=== PATIENT | male | born 1950 | race Caucasian/White ===

== ENCOUNTER 2022-08-19 12:07 | Emergency (ER) | payer OTHER ==
--- OUTSIDE RECORDS SUMMARY | 2022-08-19 12:13 | XMS REPORT | Continuity of Care Document ---
:1950 Author Organization [facility] t Address [address] [place] [address] [address]. [address] [place] [address] Care Team Providers Name Role Phone Asked, No Pcp Primary Care Physician Unavailable ASHELY HINDS Attending Clinician Unavailable ASHELY HINDS Admitting Clinician Unavailable Payers Payer Name Policy Type Policy Number Effective Date Expiration Date S bea [facility] [id number] 2021 00:00:00 Problems Condition Condition Condition Status Onset Resolution Last Treating Co mments Source Name Details Category Date Date Treatment Clinician Date No known No known Disease Metho di active active st problems problems Hospit a l Allergies, Adverse Reactions, Alerts This patient has no known allergies or adverse reactions. Social History Social Habit Start Date Stop Date Quantity Comments Source History of Smokes tobacco [facility] tobacco use daily Hospital Tobacco use and 2017-11-02 2017-11-02 Smokeless tobacco [facility] exposure 00:00:00 00:00:00 non-user Hospital Alcohol intake 2017-11-02 2017-11-02 Current [facility] 00:00:00 00:00:00 non-drinker of Hospital alcohol (finding) Sex Ass[birth year] [facility] 00:00:00 00:00:00 Hospital Smoking Status Start Date Stop Date Source Smokes tobacco daily 2017-11-02 00:00:[address] [facility] Medications Ordered Filled Start Stop Current Ordering Indication Dosage Frequency Signature Comments Components Source Medication Medication Date Date Medication? Clinician (SIG) Name Name No known No No known Metho di medications 1-[address] 18:15: [facility] Procedures This patient has no known procedures. Plan of Care Planned Activity Planned Date Details Comments Source Future Scheduled 2022-08-14 SHINGLES VACCINES ([address] [facility] Test 23:00:04 of 2) [code = SHINGLES VACCINES (1 of 2)] Future Scheduled 2022-08-14 65+ P[facility]UMOCOCCAL [facility] Test 23:00:04 VACCINE (1 - PCV) [code = 65+ PNEUMOCOCCAL VACCINE (1 - PCV)] Future Scheduled 2022-08-14 INFLUENZA VACCINE [email or web address] Test 23:00:04 [code = INFLUENZA VACCINE] Future Scheduled 2022-08-14 HEPATITIS B VACCINES Met [facility] Test 23:00:04 (1 of 3 - 3-dose series) [code = HEPATITIS B VACCINES (1 of 3 - 3-dose series)] Future Scheduled 2022-08-14 COVID-19 VACCINE (#1) [facility] Test 23:00:04 [code = COVID-19 VACCINE (#1)] Future Scheduled 2022-08-[address] [facility] Test 23:00:04 [code = COLONOSCOPY SCREENING] Encounters Start End Encounter Admission Attending Care Care Encounter Source Date/Time Date/Time Type Type Clinicians Facility Department ID 2022-05-13 Outpatient [facility] [id number] [place] 11:26:21 [id number] Health 2021-10-30 2021-10-31 Outpatient [facility] CAR 2018 [facility] 10:55:00 14:01:00 ASHELY Results This patient has no known results.
[2022-08-19] MEDS ORDERED: NA CHLORIDE 0.9% 1,000 ML ONE (13:02)
--- NOTE | 2022-08-19 13:18 | RAD REPORT ---
EXAM DESCRIPTION: RAD - Chest Single View - 08/19/2022 1:08 pm CLINICAL HISTORY: CHEST PAIN COMPARISON: CHEST SINGLE VIEW dated 07/22/2009; CHEST SINGLE VIEW dated 04/19/2008 FINDINGS: Lines: None. Lungs: No evidence of edema or pneumonia. Pleural: No significant pleural effusions or pneumothorax. Cardiac: Cardiomegaly Mediastinum: Within normal limits. Bones: No acute fractures. Remote rib fractures. Other: None IMPRESSION: No acute cardiopulmonary disease.
[2022-08-19 13:38] LABS: Protime INR 1.14
[2022-08-19 13:48] LABS: Absolute Lymphocytes (CBC) 1.3 K/uL (0.7-4.9); Hematocrit 40.5 % (39.6-49.0); Lymphocytes % 23.1 % (15.3-44.8); MCV 94.4 fL (80-100); RBC Red Blood Cell Count 4.29 M/uL (4.33-5.43)
[2022-08-19 13:55] LABS: Albumin 3.2 g/dL (3.4-5.0); Bilirubin Direct 0.2 mg/dL (0-0.2); Bilirubin Total 0.7 mg/dL (0.2-1.0); Magnesium 1.9 mg/dL (1.8-2.4); Potassium 3.4 mmol/L (3.5-5.1); Protein, Total 7.1 g/dL (6.4-8.2); Troponin High Sensitivity 32.4 pg/mL (<58.9)
[2022-08-19 14:00] LABS: SARS-COV-2 RT PCR NEGATIVE (NEGATIVE)
--- NOTE | 2022-08-19 14:47 | RAD REPORT ---
EXAM DESCRIPTION: CTAngio Aorta For Dissection - 08/19/2022 2:30 pm CLINICAL HISTORY: abdominal pain COMPARISON: Chest Single View dated 08/19/2022 TECHNIQUE: CTA of the chest, abdomen, and pelvis was performed without IV contrast. MIPs were create d. All CT scans are performed using dose optimization technique as appropriate and may include automated exposure control or mA/KV adjustment according to patient size. FINDINGS: Thorax: Chest Wall: No abnormal mass Lungs: Very mild interlobular septal thickening. Pleura: No effusions or pneumothorax. Lizzeth/Mediastinum: No lymphadenopathy. Aorta/Pulmonary Arteries: Unremarkable Heart: Cardiomegaly. Multi-vessel coronary artery disease. Abdomen/Pelvis: Liver: No acute abnormality or suspicious lesions. Biliary: No biliary ductal dilatation. Stomach: No significant focal abnormality. Duodenum: No significant focal abnormality. Pancreas: No significant abnormality. Spleen: No significant abnormality. Adrenal: Right adrenal thickening. Left adrenal calcifications. Kidney/ureter: No hydronephrosis. No renal calculi. Intermediate attenuation right renal lesions that are nonspecific. Retroperitoneum: No retroperitoneal adenopathy. Vascular: No aneurysm. Bowel: Mild diffuse colonic wall thickening.. Peritoneum: No ascites or free air. Bladder: Grossly unremarkable. Reproductive: No adnexal masses. Bones: Remote right-sided rib fractures. No acute fractures. Multilevel degenerative changes are pres ent in the spine. Other: n/a IMPRESSION: 1. No aortic aneurysm or aortic dissection identified. Mild edema suspected. 2. Mild colonic wall thickening versus underdistention. Findings could represent a colitis.
[2022-08-19 14:48] LABS: Urine Blood Negative (Negative); Urine Glucose Negative (Negative); Urine Protein Negative (Negative); Urine pH 5.5 (5.0-7.0)
[2022-08-19 15:08] LABS: Barbiturates NEGATIVE (NEGATIVE); Benzodiazepines POSITIVE (NEGATIVE); Cocaine NEGATIVE (NEGATIVE); METHAMPHETAM POSITIVE (NEGATIVE); Methadone NEGATIVE (NEGATIVE); Opiates NEGATIVE (NEGATIVE); Phencyclidine NEGATIVE (NEGATIVE); THC Cannibis POSITIVE (NEGATIVE)
--- NOTE | 2022-08-19 15:22 | ER ---
Nurse's Notes [facility] Name: Elfego Avelar Age: 71 yrs Sex: Male : 1950 Arrival Date: 08/19/2022 Time: 12:12 Bed 14 Private MD: Diagnosis: Infectious gastroenteritis and colitis, unspecified Presentation: 08/19 12:24 Chief complaint: Patient states: diarrhea x7 days and vomiting x3 days, very weak. 5 Coronavirus screen: Vaccine status: Patient reports being unvaccinated. Client denies travel out of the [place] in the last 14 days. Ebola Screen: Patient negative for fever greater than or equal to 101.5 degrees Fahrenheit, and additional compatible Ebola Virus Disease symptoms Patient denies exposure to infectious person. Patient denies travel to an Ebola-affected area in the 21 days before illness onset. Initial Sepsis Screen: Does the patient meet any 2 criteria? No. Patient's initial sepsis screen is negative. Does the patient have a suspected source of infection? No. Patient's initial sepsis screen is negative. Risk Assessment: Do you want to hurt yourself or someone else? Patient reports no desire to harm self or others. 12:24 Method Of Arrival: Ambulatory [facility] 12:24 Acuity: JOHN 3 jh5 Triage Assessment: 12:26 General: Appears in no apparent distress. uncomfortable, slender, Behavior is calm, jh5 cooperative, appropriate for age. GI: Reports lower abdominal pain, diarrhea, nausea, vomiting. Historical: - Allergies: 12:26 No Known Allergies; [facility] - Immunization history:: Adult Immunizations up to date. - Social history:: Smoking status: Patient denies any tobacco usage or history of. Screenin:00 Abuse screen: Denies threats or abuse. Denies injuries from another. Nutritional ko1 screening: No deficits noted. Tuberculosis screening: No symptoms or risk factors identified. Fall Risk None identified. Assessment: 13:00 General: Appears in no apparent distress. uncomfortable, Behavior is calm, cooperative, ko1 appropriate for age. GI: Abdomen is flat, non-distended, Reports nausea, vomiting. : No deficits noted. Vital Signs: 12:24 BP 134 / 99; Pulse 105; Resp 20; Temp 97.4; Pulse Ox 100% ; Weight 72.57 kg; Height 6 jh5 ft. 1 in. (185.42 cm); 13:00 BP 138 / 94; Pulse 95; Pulse Ox 99% on R/A; ko1 16:05 BP 132 / 86; Pulse 90; Resp 20; Pulse Ox 98% on R/A; ko1 12:24 Body Mass Index 21.11 (72.57 kg, 185.42 cm) [facility] ED Course: 12:12 Patient arrived in ED. rg4 12:20 Kasie Deng FNP-C is PHCP. snw 12:20 Dimitry Salcido MD is Attending Physician. snw 12:26 Triage completed. [facility] 12:26 Arm band placed on right wrist. [facility] 12:41 Earnestine Villanueva, CARLOS is Primary Nurse. ko1 13:00 Patient has correct armband on for positive identification. Bed in low position. Call ko1 light in reach. Side rails up X 1. 13:00 Basic Metabolic Panel Sent. ko1 13:00 CBC with Diff Sent. ko1 13:00 LFT's Sent. ko1 13:00 Magnesium Sent. ko1 13:00 NT PRO-BNP Sent. ko1 13:00 Troponin HS Sent. ko1 13:00 Inserted saline lock: 22 gauge in right forearm, using aseptic technique. Blood ko1 collected. 13:09 COVID-19/FLU A+B (Document "Date of Onset" if Symptomatic) Sent. ko1 13:10 XRAY Chest (1 view) In Process Unspecified. EDMS 13:25 Hepatitis Panel Sent. ko1 13:25 Basic Metabolic Panel Sent. ko1 13:25 CBC with Diff Sent. ko1 13:25 LFT's Sent. ko1 13:25 Magnesium Sent. ko1 13:25 NT PRO-BNP Sent. ko1 13:25 PT-INR Sent. ko1 13:25 Troponin HS Sent. ko1 14:31 CT Aorta for Dissection In Process Unspecified. EDMS 14:49 UDS Sent. ko1 14:49 Hepatitis Panel Sent. ko1 16:05 No provider procedures requiring assistance completed. IV discontinued, intact, ko1 bleeding controlled, No redness/swelling at site. Pressure dressing applied. Administered Medications: 13:05 Drug: NS 0.9% 1000 ml Route: IV; Rate: 75 ml/hr; Site: left wrist; ko1 15:48 Drug: Cipro (ciprofloxacin) 500 mg Route: PO; ko1 15:48 Drug: Zofran (Ondansetron) 4 mg Route: PO; ko1 Medication: 16:05 VIS not applicable for this client. ko1 Outcome: 15:22 Discharge ordered by . ying 16:05 Discharged to home ambulatory. ko1 16:05 Condition: stable 16:05 Discharge instructions given to patient, Instructed on discharge instructions, follow up and referral plans. medication usage, Demonstrated understanding of instructions, follow-up care, medications, Prescriptions given X 2. 16:13 Patient left the ED. ko1 Signatures: Dispatcher [employer] EDMS Kasie Deng, SUPERVISOR GEAR REPAIR-C SUPERVISOR GEAR REPAIR-Csnw Jesi Segura rg4 Rachel Mcleod, RN RN jh5 Earnestine Villanueva, CARLOS RN ko1
--- NOTE | 2022-08-19 15:22 | EDPHYS ---
Physician Documentation [facility] Name: Elfego Avelar Age: 71 yrs Sex: Male : 1950 Arrival Date: 08/19/2022 Time: 12:12 Bed 14 Private MD: ED Physician Dimitry Salcido HPI: 08/19 14:22 This 71 yrs old Male presents to ER via Ambulatory with complaints of Vomiting/Diarrhea.snw 14:22 The patient presents to the emergency department with nausea, vomiting, diarrhea. snw Onset: The symptoms/episode began/occurred suddenly, 6 day(s) ago, and became persistent. Possible causes: +heroin abuse. The symptoms are aggravated by nothing. Severity of symptoms: At their worst the symptoms were moderate. The patient has experienced similar episodes in the past. The patient has not recently seen a physician. 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 Historical: - Allergies: 12:26 No Known Allergies; jh5 - Immunization history:: Adult Immunizations up to date. - Social history:: Smoking status: Patient denies any tobacco usage or history of. ROS: 14:22 Constitutional: Negative for fever, chills, and weight loss, Eyes: Negative for injury, snw pain, redness, and discharge, ENT: Negative for injury, pain, and discharge, Neck: Negative for injury, pain, and swelling, Cardiovascular: Negative for chest pain, palpitations, and edema, Respiratory: Negative for shortness of breath, cough, wheezing, and pleuritic chest pain, Back: Negative for injury and pain, : Negative for injury, bleeding, discharge, and swelling, MS/Extremity: Negative for injury and deformity, Skin: Negative for injury, rash, and discoloration, Neuro: Negative for headache, weakness, numbness, tingling, and seizure. 14:22 Abdomen/GI: Positive for abdominal pain, nausea, vomiting, and diarrhea, of the right lower quadrant and left lower quadrant. Exam: 12:55 Respiratory: Lungs have equal breath sounds bilaterally, clear to auscultation and snw percussion. No rales, rhonchi or wheezes noted. No increased work of breathing, no retractions or nasal flaring. Abdomen/GI: Soft, tender, with normal bowel sounds. No distension or tympany. Back: No spinal tenderness. No costovertebral tenderness. Full range of motion. MS/ Extremity: Pulses equal, no cyanosis. Neurovascular intact. Full, normal range of motion. Neuro: Awake and alert, GCS 15, oriented to person, place, time, and situation. Cranial nerves II-XII grossly intact. Motor strength 5/5 in all extremities. Sensory grossly intact. Cerebellar exam normal. Normal gait. 14:18 Head/Face: Normocephalic, atraumatic. Eyes: Pupils equal round and reactive to light, snw extra-ocular motions intact. Lids and lashes normal. Conjunctiva and sclera are non-icteric and not injected. Cornea within normal limits. Periorbital areas with no swelling, redness, or edema. ENT: Nares patent. No nasal discharge, no septal abnormalities noted. Tympanic membranes are normal and external auditory canals are clear. Oropharynx with no redness, swelling, or masses, exudates, or evidence of obstruction, uvula midline. Mucous membranes moist. Neck: Trachea midline, no thyromegaly or masses palpated, and no cervical lymphadenopathy. Supple, full range of motion without nuchal rigidity, or vertebral point tenderness. No Meningismus. Chest/axilla: Normal chest wall appearance and motion. Nontender with no deformity. No lesions are appreciated. 14:18 Constitutional: The patient appears awake, frail, unkempt. 14:18 Cardiovascular: Rate: tachycardic, Rhythm: regular. Vital Signs: 12:24 BP 134 / 99; Pulse 105; Resp 20; Temp 97.4; Pulse Ox 100% ; Weight 72.57 kg; Height 6 jh5 ft. 1 in. (185.42 cm); 13:00 BP 138 / 94; Pulse 95; Pulse Ox 99% on R/A; ko1 16:05 BP 132 / 86; Pulse 90; Resp 20; Pulse Ox 98% on R/A; ko1 12:24 Body Mass Index 21.11 (72.57 kg, 185.42 cm) [facility] MDM: 12:21 Patient medically screened. snw 15:23 Data reviewed: vital signs, nurses notes. Data interpreted: Pulse oximetry: on room air snw is 99 %. Interpretation: normal. Counseling: I had a detailed discussion with the patient and/or guardian regarding: the historical points, exam findings, and any diagnostic results supporting the discharge/admit diagnosis, the presence of at least one elevated blood pressure reading (>120/80) during this emergency department visit, lab results, radiology results, the need for outpatient follow up, to return to the emergency department if symptoms worsen or persist or if there are any questions or concerns that arise at home. Special discussion: Based on the patient's Hx, exam, and Dx evaluation, there is no indication for emergent surgery or inpatient Tx. It is understood by the patient/guardian that if the Sx's persist or worsen they need to return immediately for re-evaluation. Based on the history and exam findings, there is no indication for further emergent testing or inpatient evaluation. I discussed with the patient/guardian the need to see the primary care provider for further evaluation of the symptoms. 08/19 12:43 Order name: Basic Metabolic Panel; Complete Time: 13:56 snw 08/19 12:43 Order name: CBC with Diff; Complete Time: 13:49 snw 08/19 12:43 Order name: LFT's; Complete Time: 13:56 snw 08/19 12:43 Order name: Magnesium; Complete Time: 13:56 snw 08/19 12:43 Order name: NT PRO-BNP; Complete Time: 13:56 snw 08/19 12:43 Order name: PT-INR; Complete Time: 13:47 snw 08/19 12:43 Order name: Troponin HS; Complete Time: 13:56 snw 08/19 12:43 Order name: XRAY Chest (1 view); Complete Time: 13:19 snw 08/19 12:43 Order name: CT Aorta for Dissection; Complete Time: 14:53 snw 08/19 12:43 Order name: UDS; Complete Time: 15:20 snw 08/19 12:43 Order name: Hepatitis Panel snw 08/19 12:43 Order name: COVID-19/FLU A+B (Document "Date of Onset" if Symptomatic); Complete Time: snw 14:06 08/19 14:48 Order name: Urine Dipstick-Ancillary; Complete Time: 14:53 EDMS 08/19 12:43 Order name: EKG; Complete Time: 12:45 snw 08/19 12:43 Order name: Cardiac monitoring; Complete Time: 12:44 snw 08/19 12:43 Order name: EKG - Nurse/Tech; Complete Time: 13:00 snw 08/19 12:43 Order name: IV Saline Lock; Complete Time: 12:44 snw 08/19 12:43 Order name: Labs collected and sent; Complete Time: 14:49 snw 08/19 12:43 Order name: O2 Per Protocol; Complete Time: 12:44 snw 08/19 12:43 Order name: O2 Sat Monitoring; Complete Time: 12:44 snw 08/19 13:12 Order name: Labs - recollect needed: all tubes /raul from lab called; Complete Time: kj 13:25 EC:55 Rate is 99 beats/min. Rhythm is regular. IA interval is normal. QRS interval is snw prolonged. Clinical impression: LV Strain and Left BBB. Interpreted by me. Administered Medications: 13:05 Drug: NS 0.9% 1000 ml Route: IV; Rate: 75 ml/hr; Site: left wrist; ko1 15:48 Drug: Cipro (ciprofloxacin) 500 mg Route: PO; ko1 15:48 Drug: Zofran (Ondansetron) 4 mg Route: PO; ko1 Disposition: 17:17 Co-signature as Attending Physician, Dimitry Salcido MD. rn Disposition Summary: 08/19/22 15:22 Discharge Ordered Location: Home snw Condition: Stable snw Diagnosis - Infectious gastroenteritis and colitis, unspecified snw Followup: snw - With: Emergency Department - When: As needed - Reason: Worsening of condition Followup: snw - With: Private Physician - When: 2 - 3 days - Reason: Recheck today's complaints, Continuance of care, Re-evaluation by your physician Discharge Instructions: - Discharge Summary Sheet snw - Food Choices to Help Relieve Diarrhea, Adult snw - Diarrhea, Adult, [id number] snw - Colitis snw - Illegal Drug Use Information, Adult snw Forms: - Medication Reconciliation Form snw - Thank You Letter snw - Antibiotic Education snw - Prescription Opioid Use snw Prescriptions: - Cipro 500 mg Oral Tablet - take 1 tablet by ORAL route every 12 hours for 10 days; 20 tablet; Refills: 0, snw Product Selection Permitted - Zofran 4 mg Oral Tablet - take 1 tablet by ORAL route every 12 hours As needed; 20 tablet; Refills: 0, snw Product Selection Permitted Signatures: Dispatcher [employer] EDMS Ish, Kasie, BASKETBALL REFEREE-C BASKETBALL REFEREE-Csnw Dimitry Salcido MD MD rn Jackson, Kandis kj1 Rachel Mcleod RN RN jh5 Earnestine Villanueva RN RN ko1
[2022-08-19] MEDS ORDERED: CIPROFLOXACIN HCL 500 MG TAB ONE (15:47)
[2022-08-19] MEDS ORDERED: ONDANSETRON 4 MG (ODT) TAB ONE (15:48)
[2022-08-19 16:44] VITALS: TEMP 98.3
[2022-08-19 16:47] VITALS: BP 126/86; O2SAT 100
--- NOTE | 2022-08-20 15:59 | EKG ---
Test Date: 2022-08-19 Test Time: 12:50:23 Hand Rounder: RIZWAN MEASUREMENT RESULTS: Intervals: Rate: 99 NE: 172 QRSD: 174 QT: 428 QTc: 549 Hope: P: 43 NE: 172 QRS: -64 T: 72 INTERPRETIVE STATEMENTS: Normal sinus rhythm Left atrial enlargement Left axis deviation Left bundle branch block Abnormal ECG Compared to ECG 07/22/2009 09:23:21 Atrial abnormality now present Left-axis deviation now present Left bundle-branch block now present Sinus bradycardia no longer present T-wave abnormality no longer present Electronically Signed On 08-20-22 15:57:58 CENTRIFUGAL SPINNER by Munir Abel
[2022-08-24 03:09] LABS: HBsAG Nonreactive (Nonreactive)
[2022-08-24 17:11] LABS: Hep C Virus RNA (PCR)log 6.26 log IU/mL
== END 2022-08-19 16:13 | disposition home or self-care (01) ==
LOC: ER 12:07
DX: K52.9 Noninfective gastroenteritis and colitis, unspecified (principal); Z20.822 Contact with and (suspected) exposure to COVID-19
CPT/HCPCS: 93005; 85025; 80048; 36415; 83735; 85610; 80076; 81003; 84484; 83880; 0240U; 80307; 87522; 80074; 71275; 74175; 71045; 99284; Q9967; Q0162; J7030